=== PATIENT | female | born 1965 | race Caucasian/White ===

== ENCOUNTER 2016-07-13 19:17 | Inpatient (IN) | payer BC ==
[~2016-07-13] VITALS: Ht 170.2 cm; Wt 86.7 kg
[2016-07-13] MEDS ORDERED: OPTIRAY 350 100 ML VIAL HMH IV ONE (19:18)
[2016-07-13] MEDS ORDERED: ACETAMINOPHEN 325 MG TAB ONE (19:35)
[2016-07-13] MEDS ORDERED: Ibuprofen 400 MG TAB ONE (20:25)
[2016-07-13] MEDS ORDERED: SODIUM CHLORIDE 0.9% 1,000 ML ONE (20:49)
[2016-07-13] MEDS ORDERED: DIPHENHYDRAMINE 50 MG/ML VIAL ONE (21:48)
[2016-07-13] MEDS ORDERED: ONDANSETRON 4 MG VIAL ONE (21:49)
[2016-07-13] MEDS ORDERED: MORPHINE 4 MG/ML SYR ONE (21:49)
[2016-07-13] MEDS ORDERED: SODIUM CHLORIDE 0.9% 100 ML IV ONE (23:48)
[2016-07-13] MEDS ORDERED: PIPER/TAZO 3.375 GM PYXIS ONE (23:48)
[2016-07-14] VITALS (7 sets, daily range): BP systolic 91–124; RESP 16–18; TEMP 97.4–98.6; BMI 30.3
[2016-07-14] MEDS ORDERED: SODIUM CHLORIDE 0.9% 1,000 ML ONE (00:06)
[2016-07-14] MEDS ORDERED: DEXTROSE 50% SYRINGE 50 ML IV PRN (00:55)
[2016-07-14] MEDS ORDERED: GLUCAGON 1 MG VIAL IM PRN (00:55)
[2016-07-14] MEDS ORDERED: LACT RINGERS 1,000 ML IV SCH ×2 (00:55→11:55)
[2016-07-14] MEDS ORDERED: SALINE FLUSH 10 ML FLUSH PRN (00:55)
[2016-07-14] MEDS ORDERED: Flu Vaccine Quadrivalent 60 MCG/0.5 ML IM.VACC ONE (01:55)
[2016-07-14] MEDS: MORPHINE 2 MG/ML SYR IV PRN ×4 (02:13→20:06)
[2016-07-14] MEDS: ONDANSETRON 4 MG VIAL IV PRN ×4 (02:14→17:25)
[2016-07-14] MEDS ORDERED: KETOROLAC 30 MG/ML VIAL IV ONE (02:35)
[2016-07-14] MEDS: SODIUM CHLORIDE 0.9% FLUSH BAG 500 ML IV SCH (05:34)
[2016-07-14] MEDS: METRONIDAZOLE 500MG/100ML 100 ML IV SCH ×3 (05:36→17:25)
[2016-07-14] MEDS: SALINE FLUSH 10 ML FLUSH SCH ×2 (07:29→20:04)
[2016-07-14] MEDS: LEVOFLOXACIN 750 MG/150 ML 150 ML IV SCH (08:19)
[2016-07-14] MEDS ORDERED: ROCURONIUM 50 MG VIAL IV ONE (10:47)
[2016-07-14] MEDS ORDERED: NEOSTIGMINE 10 MG/10 ML VIAL IV ONE (10:47)
[2016-07-14] MEDS ORDERED: FENTANYL 100 MCG/2 ML AMP IV ONE (10:47)
[2016-07-14] MEDS ORDERED: PROPOFOL 20 ML PER ML IV ONE (10:47)
[2016-07-14] MEDS ORDERED: GLYCOPYRROLATE 0.2 MG/ML VIAL IV ONE (10:47)
[2016-07-14] MEDS ORDERED: ONDANSETRON 4 MG VIAL IV PUSH ONE (10:47)
[2016-07-14] MEDS ORDERED: NEB-XOPENEX 1.25 MG/3 ML INH PRN (11:55)
[2016-07-14] MEDS ORDERED: DIPHENHYDRAMINE 25 MG/10 ML UDC PO PRN (14:40)
[2016-07-14] MEDS: SUMATRIPTAN SUC 50 MG TAB PO PRN (14:50)
[2016-07-14] MEDS: ACETAMIN/BUTALB/CAFF PO PRN (17:25)
[2016-07-14] MEDS: DIPHENHYDRAMINE 50 MG/ML VIAL IV PRN (21:59)
[2016-07-15] VITALS (7 sets, daily range): BP systolic 103–143; RESP 16; TEMP 98.1–99.7
[2016-07-15] MEDS: METRONIDAZOLE 500MG/100ML 100 ML IV SCH ×4 (00:24→17:31)
[2016-07-15] MEDS: ACETAMIN/BUTALB/CAFF PO PRN ×2 (04:08→20:08)
[2016-07-15] MEDS: ONDANSETRON 4 MG VIAL IV PRN ×4 (04:08→17:31)
[2016-07-15] MEDS: SODIUM CHLORIDE 0.9% FLUSH BAG 500 ML IV SCH (05:13)
[2016-07-15] MEDS: SALINE FLUSH 10 ML FLUSH SCH ×2 (08:00→20:00)
[2016-07-15] MEDS ORDERED: MISSING DOSE XX ONE (08:30)
[2016-07-15] MEDS: LEVOFLOXACIN 750 MG/150 ML 150 ML IV SCH (08:55)
[2016-07-15] MEDS: SUMATRIPTAN SUC 50 MG TAB PO PRN (08:55)
[2016-07-15] MEDS: NEB-XOPENEX 1.25 MG/3 ML INH SCH ×3 (10:29→22:16)
[2016-07-15] MEDS ORDERED: SODIUM CHLORIDE 0.9% 250 ML IV ONE (10:30)
[2016-07-15] MEDS: OXYCODONE 5 MG TAB PO PRN ×2 (12:21→17:32)
[2016-07-15] MEDS ORDERED: LACT RINGERS 1,000 ML IV SCH (15:10)
[2016-07-15] MEDS ORDERED: PROMETHAZINE 25 MG/ML VIAL IV PRN (20:20)
[2016-07-15] MEDS ORDERED: PROMETHAZINE 25 MG/ML VIAL ONE (20:23)
[2016-07-16] VITALS (9 sets, daily range): BP systolic 116–144; RESP 16; TEMP 97.4–99.9
[2016-07-16] MEDS: METRONIDAZOLE 500MG/100ML 100 ML IV SCH ×5 (00:33→23:53)
[2016-07-16] MEDS: OXYCODONE 5 MG TAB PO PRN (00:37)
[2016-07-16] MEDS: ONDANSETRON 4 MG VIAL IV PRN ×2 (05:28→17:50)
[2016-07-16] MEDS: SUMATRIPTAN SUC 50 MG TAB PO PRN ×2 (05:28→19:44)
[2016-07-16] MEDS: SODIUM CHLORIDE 0.9% FLUSH BAG 500 ML IV SCH (05:31)
[2016-07-16] MEDS: NEB-XOPENEX 1.25 MG/3 ML INH SCH ×3 (07:45→23:03)
[2016-07-16] MEDS: SALINE FLUSH 10 ML FLUSH SCH ×2 (08:00→19:44)
[2016-07-16] MEDS: LEVOFLOXACIN 750 MG/150 ML 150 ML IV SCH (08:02)
[2016-07-16] MEDS ORDERED: KETOROLAC 30 MG/ML VIAL IV PRN (08:30)
[2016-07-16] MEDS ORDERED: MISSING DOSE XX ONE ×2 (09:40→12:20)
[2016-07-16] MEDS: KETOROLAC 30 MG/ML VIAL IV PRN ×2 (10:23→17:51)
[2016-07-16] MEDS ORDERED: LACT RINGERS 1,000 ML IV SCH (13:30)
[2016-07-16] MEDS: MORPHINE 2 MG/ML SYR IV PRN (20:09)
[2016-07-16] MEDS: DILAUDID 1 MG/ML AMP IV PRN (20:45)
[2016-07-16] MEDS: DIPHENHYDRAMINE 50 MG/ML VIAL IV PRN (20:45)
[2016-07-17] VITALS (8 sets, daily range): BP systolic 111–138; RESP 16; TEMP 97.6–102.4
[2016-07-17] MEDS ORDERED: MISSING DOSE XX ONE ×3 (01:55→11:35)
[2016-07-17] MEDS: DILAUDID 1 MG/ML AMP IV PRN ×6 (02:36→21:45)
[2016-07-17] MEDS: SODIUM CHLORIDE 0.9% FLUSH BAG 500 ML IV SCH (06:00)
[2016-07-17] MEDS: ONDANSETRON 4 MG VIAL IV PRN ×2 (06:01→15:37)
[2016-07-17] MEDS: METRONIDAZOLE 500MG/100ML 100 ML IV SCH ×3 (06:02→17:36)
[2016-07-17] MEDS: ACETAMIN/BUTALB/CAFF PO PRN (06:02)
[2016-07-17] MEDS: NEB-XOPENEX 1.25 MG/3 ML INH SCH ×3 (06:21→23:00)
[2016-07-17] MEDS: SALINE FLUSH 10 ML FLUSH SCH ×2 (07:49→21:44)
[2016-07-17] MEDS: LEVOFLOXACIN 750 MG/150 ML 150 ML IV SCH (08:53)
[2016-07-17] MEDS: SUMATRIPTAN SUC 50 MG TAB PO PRN (09:06)
[2016-07-17] MEDS ORDERED: LACT RINGERS 1,000 ML IV SCH (10:40)
[2016-07-17] MEDS ORDERED: FAMOTIDINE 20 MG INJ IV ONE (10:40)
[2016-07-17] MEDS ORDERED: OMNIPAQUE 350 50ML PO ONE (12:40)
[2016-07-17] MEDS: OMNIPAQUE 240 MG/ML, 50 ML PO SCH ×2 (12:53→15:53)
[2016-07-17] MEDS ORDERED: PROMETHAZINE 25 MG/ML VIAL IV PRN (14:45)
[2016-07-17] MEDS ORDERED: CHLORASEPTIC 180 ML BTL PO PRN (15:45)
[2016-07-17] MEDS ORDERED: OPTIRAY 350 100 ML VIAL HMH IV ONE (16:44)
[2016-07-17] MEDS ORDERED: SODIUM CHLORIDE 0.9% 1,000 ML IV ONE ×2 (18:05→23:00)
[2016-07-17] MEDS ORDERED: CEFOXITIN 2,000 MG in SODIUM CHLORIDE 0.9% 100 ML IV ONE (18:05)
[2016-07-17] MEDS ORDERED: ALVIMOPAN 12 MG CAP PO ONE (18:15)
[2016-07-17] MEDS: FAMOTIDINE 20 MG INJ IV SCH (21:44)
[2016-07-18] VITALS (23 sets, daily range): BP systolic 96–143; RESP 10–24; TEMP 98.6–102.9
[2016-07-18] MEDS: METRONIDAZOLE 500MG/100ML 100 ML IV SCH ×5 (00:06→23:56)
[2016-07-18] MEDS: LACT RINGERS 1,000 ML IV SCH ×2 (03:32→19:09)
[2016-07-18] MEDS: DILAUDID 1 MG/ML AMP IV PRN ×3 (03:32→10:21)
[2016-07-18] MEDS: SODIUM CHLORIDE 0.9% FLUSH BAG 500 ML IV SCH (06:00)
[2016-07-18] MEDS: NEB-XOPENEX 1.25 MG/3 ML INH SCH ×3 (07:56→23:15)
[2016-07-18] MEDS: SALINE FLUSH 10 ML FLUSH SCH ×2 (08:00→20:19)
[2016-07-18] MEDS ORDERED: SODIUM CHLORIDE 0.9% 1,000 ML IV ONE (08:25)
[2016-07-18] MEDS: LEVOFLOXACIN 750 MG/150 ML 150 ML IV SCH (09:19)
[2016-07-18] MEDS: FAMOTIDINE 20 MG INJ IV SCH ×2 (09:19→20:19)
[2016-07-18] MEDS ORDERED: MISSING DOSE XX ONE ×2 (11:15→18:00)
[2016-07-18] MEDS ORDERED: OXYCODONE 5 MG TAB PO PRN (11:45)
[2016-07-18] MEDS ORDERED: MEPERIDINE 25 MG/ML IV PRN (11:45)
[2016-07-18] MEDS ORDERED: MORPHINE 4 MG/ML SYR IV PRN (11:45)
[2016-07-18] MEDS ORDERED: DILAUDID 1 MG/ML AMP IV PRN (11:45)
[2016-07-18] MEDS ORDERED: ONDANSETRON 4 MG VIAL IV PRN ×2 (11:45)
[2016-07-18] MEDS ORDERED: MORPHINE 2 MG/ML SYR IV PRN (11:45)
[2016-07-18] MEDS ORDERED: NALOXONE 0.4 MG/ML AMP IV PRN (11:45)
[2016-07-18] MEDS: **ONLY ANESTEHSIA MAY ORDER OPIATES WHILE ON EPIDURAL XX SCH ×2 (11:45→20:00)
[2016-07-18] MEDS: PIPERACIL/TAZO 3.375GM/50ML 50 ML IV SCH ×3 (14:33→23:56)
[2016-07-18] MEDS: DIPHENHYDRAMINE 50 MG/ML VIAL IV PRN (21:11)
[2016-07-18] MEDS: ACETAMINOPHEN 325 MG TAB PO PRN (23:56)
[2016-07-19] VITALS (10 sets, daily range): BP systolic 108–118; RESP 16–20; TEMP 99–102.1
[2016-07-19] MEDS ORDERED: ACETAMINOPHEN 650 MG SUPP RECTAL PRN (00:05)
[2016-07-19] MEDS: SODIUM CHLORIDE 0.9% FLUSH BAG 500 ML IV SCH (06:00)
[2016-07-19] MEDS: METRONIDAZOLE 500MG/100ML 100 ML IV SCH ×3 (06:09→18:48)
[2016-07-19] MEDS: PIPERACIL/TAZO 3.375GM/50ML 50 ML IV SCH ×3 (06:09→17:37)
[2016-07-19] MEDS: NEB-XOPENEX 1.25 MG/3 ML INH SCH ×3 (06:17→22:31)
[2016-07-19] MEDS: **ONLY ANESTEHSIA MAY ORDER OPIATES WHILE ON EPIDURAL XX SCH ×2 (08:00→21:02)
[2016-07-19] MEDS: SALINE FLUSH 10 ML FLUSH SCH ×2 (08:00→21:01)
[2016-07-19] MEDS: FENT EPIDURAL SCH (08:25)
[2016-07-19] MEDS: BUPIV EPIDURAL SCH (08:25)
[2016-07-19] MEDS: FAMOTIDINE 20 MG INJ IV SCH ×2 (09:22→21:01)
[2016-07-19] MEDS: LACT RINGERS 1,000 ML IV SCH (14:40)
[2016-07-19] MEDS: ACETAMINOPHEN 325 MG TAB PO PRN (18:48)
[2016-07-20] MEDS: PIPERACIL/TAZO 3.375GM/50ML 50 ML IV SCH ×5 (00:10→23:25)
[2016-07-20] MEDS: METRONIDAZOLE 500MG/100ML 100 ML IV SCH ×5 (00:55→23:25)
[2016-07-20] MEDS: LACT RINGERS 1,000 ML IV SCH ×2 (02:28→12:54)
[2016-07-20] MEDS: BUPIV EPIDURAL SCH (03:25)
[2016-07-20] MEDS: FENT EPIDURAL SCH (03:25)
[2016-07-20 03:31] VITALS: BP_SYST 112; RESP 16; TEMP 100.4
[2016-07-20] MEDS: SODIUM CHLORIDE 0.9% FLUSH BAG 500 ML IV SCH (06:00)
[2016-07-20] MEDS ORDERED: SODIUM CHLORIDE 0.9% 1,000 ML IV ONE (07:50)
[2016-07-20] MEDS: **ONLY ANESTEHSIA MAY ORDER OPIATES WHILE ON EPIDURAL XX SCH ×2 (08:00→19:59)
[2016-07-20] MEDS: SALINE FLUSH 10 ML FLUSH SCH ×2 (08:00→19:59)
[2016-07-20] MEDS: NEB-XOPENEX 1.25 MG/3 ML INH SCH ×3 (08:04→22:23)
[2016-07-20 08:07] VITALS: BP_SYST 115; RESP 15; TEMP 99.3
[2016-07-20] MEDS: FAMOTIDINE 20 MG INJ IV SCH ×2 (08:58→19:57)
[2016-07-20 11:17] VITALS: BP_SYST 128; RESP 15; TEMP 99.2
[2016-07-20 11:32] VITALS: Ht 170.2 cm; Wt 86.7 kg
[2016-07-20 16:02] VITALS: BP_SYST 129; RESP 15; TEMP 98.8
[2016-07-20] MEDS: DIPHENHYDRAMINE 50 MG/ML VIAL IV PRN (19:57)
[2016-07-20 20:10] VITALS: BP_SYST 139; RESP 16; TEMP 99.8
[2016-07-20 23:23] VITALS: BP_SYST 133; RESP 16; TEMP 99.6
[2016-07-21] MEDS: FENT EPIDURAL SCH (02:54)
[2016-07-21] MEDS: BUPIV EPIDURAL SCH (02:54)
[2016-07-21 03:13] VITALS: BP_SYST 132; RESP 16; TEMP 99.5
[2016-07-21] MEDS: SODIUM CHLORIDE 0.9% FLUSH BAG 500 ML IV SCH (06:00)
[2016-07-21] MEDS: PIPERACIL/TAZO 3.375GM/50ML 50 ML IV SCH ×4 (06:23→23:04)
[2016-07-21] MEDS: NEB-XOPENEX 1.25 MG/3 ML INH SCH ×3 (06:57→22:14)
[2016-07-21 07:13] VITALS: BP_SYST 120; RESP 16; TEMP 99.2
[2016-07-21] MEDS: **ONLY ANESTEHSIA MAY ORDER OPIATES WHILE ON EPIDURAL XX SCH ×2 (07:27→19:31)
[2016-07-21] MEDS: FAMOTIDINE 20 MG INJ IV SCH ×2 (08:41→19:30)
[2016-07-21] MEDS: SALINE FLUSH 10 ML FLUSH SCH ×2 (08:41→19:31)
[2016-07-21] MEDS: D5 NS IV SCH ×2 (09:27→23:04)
[2016-07-21] MEDS: KCL IV SCH ×2 (09:27→23:04)
[2016-07-21] MEDS: POTASSIUM CHLORIDE PREMIX 50 ML IV SCH ×3 (10:33→14:45)
[2016-07-21 11:13] VITALS: BP_SYST 113; RESP 16; TEMP 98.8
[2016-07-21 14:40] VITALS: BP_SYST 134; RESP 16; TEMP 99.3
[2016-07-21] MEDS: DILAUDID 1 MG/ML AMP IV PRN ×3 (18:05→22:57)
[2016-07-21 19:51] VITALS: BP_SYST 132; RESP 16; TEMP 99.6
[2016-07-21 22:51] VITALS: BP_SYST 123; RESP 16; TEMP 99.7
[2016-07-22] MEDS: DILAUDID 1 MG/ML AMP IV PRN ×10 (02:34→22:54)
[2016-07-22 03:06] VITALS: BP_SYST 114; RESP 16; TEMP 99.2
[2016-07-22] MEDS: PIPERACIL/TAZO 3.375GM/50ML 50 ML IV SCH ×2 (05:00→12:39)
[2016-07-22] MEDS: SODIUM CHLORIDE 0.9% FLUSH BAG 500 ML IV SCH ×2 (05:53→21:50)
[2016-07-22] MEDS: NEB-XOPENEX 1.25 MG/3 ML INH SCH ×2 (07:00→14:19)
[2016-07-22 07:08] VITALS: BP_SYST 127; RESP 16; TEMP 98.2
[2016-07-22] MEDS: **ONLY ANESTEHSIA MAY ORDER OPIATES WHILE ON EPIDURAL XX SCH ×2 (07:37→19:43)
[2016-07-22] MEDS: FAMOTIDINE 20 MG INJ IV SCH ×2 (07:48→20:12)
[2016-07-22] MEDS: SALINE FLUSH 10 ML FLUSH SCH ×2 (07:49→19:43)
[2016-07-22] MEDS: POTASSIUM CHLORIDE PREMIX 50 ML IV SCH ×2 (07:50→09:24)
[2016-07-22 11:07] VITALS: BP_SYST 126; RESP 16; TEMP 98.5
[2016-07-22] MEDS ORDERED: BISACODYL 10 MG SUPP RECTAL ONE ×2 (12:15→14:18)
[2016-07-22] MEDS ORDERED: PIPERACIL/TAZO 3.375GM/50ML 50 ML IV SCH (12:17)
[2016-07-22 14:39] VITALS: BP_SYST 142; RESP 16; TEMP 98.6
[2016-07-22] MEDS ORDERED: NEB-XOPENEX 1.25 MG/3 ML INH PRN (16:05)
[2016-07-22] MEDS: KCL IV SCH (16:46)
[2016-07-22] MEDS: D5 NS IV SCH (16:46)
[2016-07-22 19:14] VITALS: BP_SYST 158; RESP 16; TEMP 99.6
[2016-07-22] MEDS: DIPHENHYDRAMINE 50 MG/ML VIAL IV PRN (20:55)
[2016-07-22 22:51] VITALS: BP_SYST 150; RESP 16; TEMP 99.1
[2016-07-23] VITALS (7 sets, daily range): BP systolic 118–141; RESP 15–18; TEMP 98.9–99.8
[2016-07-23] MEDS: DILAUDID 1 MG/ML AMP IV PRN ×10 (00:52→23:53)
[2016-07-23] MEDS: D5 NS IV SCH ×2 (05:40→21:46)
[2016-07-23] MEDS: KCL IV SCH ×2 (05:40→21:46)
[2016-07-23] MEDS: SALINE FLUSH 10 ML FLUSH SCH ×2 (07:53→20:45)
[2016-07-23] MEDS: FAMOTIDINE 20 MG INJ IV SCH ×2 (07:59→20:45)
[2016-07-23] MEDS: TRIAMCIN TOPICAL SCH ×3 (09:28→20:46)
[2016-07-24] VITALS (7 sets, daily range): BP systolic 122–142; RESP 16–18; TEMP 98–99.4
[2016-07-24] MEDS: DILAUDID 1 MG/ML AMP IV PRN ×6 (03:31→21:00)
[2016-07-24] MEDS: SODIUM CHLORIDE 0.9% FLUSH BAG 500 ML IV SCH (03:39)
[2016-07-24] MEDS: TRIAMCIN TOPICAL SCH ×3 (08:06→20:59)
[2016-07-24] MEDS: FAMOTIDINE 20 MG INJ IV SCH ×2 (08:06→20:59)
[2016-07-24] MEDS: SALINE FLUSH 10 ML FLUSH SCH ×2 (08:07→20:59)
[2016-07-24] MEDS: DIPHENHYDRAMINE 50 MG/ML VIAL IV PRN (20:58)
[2016-07-25] MEDS: DILAUDID 1 MG/ML AMP IV PRN ×4 (02:01→14:47)
[2016-07-25] MEDS: D5 NS IV SCH ×2 (02:37→16:15)
[2016-07-25] MEDS: KCL IV SCH ×2 (02:37→16:15)
[2016-07-25 03:08] VITALS: BP_SYST 128; TEMP 98.2
[2016-07-25] MEDS: SODIUM CHLORIDE 0.9% FLUSH BAG 500 ML IV SCH (05:54)
[2016-07-25 07:17] VITALS: BP_SYST 125; RESP 16; TEMP 98.4
[2016-07-25] MEDS: SALINE FLUSH 10 ML FLUSH SCH ×2 (07:57→21:27)
[2016-07-25] MEDS: FAMOTIDINE 20 MG INJ IV SCH ×2 (08:02→21:27)
[2016-07-25] MEDS: TRIAMCIN TOPICAL SCH ×3 (08:03→21:27)
[2016-07-25 10:52] VITALS: BP_SYST 130; RESP 22; TEMP 98.3
[2016-07-25] MEDS: TRAMADOL 50 MG TAB PO PRN ×2 (12:44→18:17)
[2016-07-25 15:04] VITALS: BP_SYST 148; RESP 20; TEMP 98.9
[2016-07-25 19:49] VITALS: BP_SYST 130; RESP 16; TEMP 98.7
[2016-07-26] VITALS (8 sets, daily range): BP systolic 122–141; RESP 16–22; TEMP 98.1–98.8
[2016-07-26] MEDS: DILAUDID 1 MG/ML AMP IV PRN (00:18)
[2016-07-26] MEDS: D5 NS IV SCH (05:43)
[2016-07-26] MEDS: KCL IV SCH (05:43)
[2016-07-26] MEDS: SODIUM CHLORIDE 0.9% FLUSH BAG 500 ML IV SCH (06:00)
[2016-07-26] MEDS: SALINE FLUSH 10 ML FLUSH SCH ×2 (08:00→21:56)
[2016-07-26] MEDS: FAMOTIDINE 20 MG INJ IV SCH ×2 (08:13→21:55)
[2016-07-26] MEDS: TRAMADOL 50 MG TAB PO PRN ×3 (08:14→18:05)
[2016-07-26] MEDS: TRIAMCIN TOPICAL SCH ×3 (08:14→21:55)
[2016-07-27] MEDS: TRAMADOL 50 MG TAB PO PRN
[2016-07-27 03:27] VITALS: BP_SYST 117; RESP 16; TEMP 98.1
[2016-07-27] MEDS: SODIUM CHLORIDE 0.9% FLUSH BAG 500 ML IV SCH (05:22)
[2016-07-27 07:24] VITALS: BP_SYST 122; RESP 15; TEMP 98.6
[2016-07-27] MEDS: FAMOTIDINE 20 MG INJ IV SCH (08:00)
[2016-07-27] MEDS: SALINE FLUSH 10 ML FLUSH SCH (08:00)
[2016-07-27] MEDS ORDERED: DAKIN'S 0.25% 480 ML TOPICAL SCH (09:00)
[2016-07-27 09:09] VITALS: BP_SYST 122; RESP 15; TEMP 98.6
[2016-07-27 11:06] VITALS: BP_SYST 126; RESP 15; TEMP 98.4
== END 2016-07-27 14:30 | disposition home or self-care (01) | DRG 329 ==
LOC: ENRESERV → ENRESERVTM → ENRESERVDT → ER 19:17 → ENPENDDIS 07-14 00:04 → EMR 07-14 00:04 → 5THE 07-14 01:46
PROVIDERS: ADMIT Family Medicine; ATTEND Family Medicine
PROC: 0DTN0ZZ Resection of Sigmoid Colon, Open Approach (ICD-10-PCS; principal; 2016-07-18 11:55)
DX: K57.20 Diverticulitis of large intestine with perforation and abscess without bleeding (principal); J18.9 Pneumonia, unspecified organism; K66.8 Other specified disorders of peritoneum; N39.0 Urinary tract infection, site not specified; E87.6 Hypokalemia; E86.0 Dehydration; G43.909 Migraine, unspecified, not intractable, without status migrainosus; R50.82 Postprocedural fever; B96.20 Unspecified Escherichia coli [E. coli] as the cause of diseases classified elsewhere
CPT/HCPCS: 36415; 71010; 71020; 74177; 80048; 80053; 81003; 83605; 83690; 84145; 84703; 85025; 87040; 87071; 87075; 87077; 87088; 87186; 87205; 87804; 87880; 88307; 94640; 94762; 94799; 96361; 96365; 96367; 96375; 99222; 99232; 99233; 99239